=== PATIENT | female | born 2000 | race American Indian/Alaskan Native ===

== ENCOUNTER 2019-06-23 22:10 | Emergency (ER) | payer SELFPAY ==
[2019-06-23 22:25] VITALS: BP 130/86
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
[2019-06-23] MEDS ORDERED: IBUPROFEN 800 MG TAB PO ONE (23:39)
[2019-06-24 01:25] LABS: HCG Qualitative,Urine Negative (Negative)
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
== END 2019-06-24 02:14 | disposition home or self-care (01) ==
LOC: ED 22:10
DX: S80.01XA Contusion of right knee, initial encounter (principal); S50.11XA Contusion of right forearm, initial encounter; Z79.1 Long term (current) use of non-steroidal anti-inflammatories (NSAID); Z79.899 Other long term (current) drug therapy; V49.49XA Driver injured in collision with other motor vehicles in traffic accident, initial encounter; Y93.89 Activity, other specified; Y92.488 Other paved roadways as the place of occurrence of the external cause; Y99.8 Other external cause status
CPT/HCPCS: 81025